=== PATIENT | male | born 1970 ===

== ENCOUNTER 2024-02-05 19:15 | Emergency (ER) | payer OTHER ==
[~2024-02-05] VITALS: Ht 193 cm; Wt 99.8 kg
[~2024-02-05 19:15] MED LIST: HYDACE5 PO; PROM25 PO
[2024-02-05 19:22] VITALS: BP 163/82
[2024-02-05] MEDS ORDERED: Diphth,Pertuss(Acell),Tet Vac 0.5 ML VIAL IM ONE (19:55)
== END 2024-02-05 20:45 | disposition home or self-care (01) ==
LOC: ER 19:15
DX: S50.812A Abrasion of left forearm, initial encounter (principal); W18.30XA Fall on same level, unspecified, initial encounter; Y99.0 Civilian activity done for income or pay
CPT/HCPCS: 73110; 90715